=== PATIENT | female | born 1960 | race African-American/Black ===

== ENCOUNTER 2017-03-10 21:00 | Emergency (ER) | payer SELFPAY ==
[~2017-03-10] VITALS: Ht 160 cm; Wt 76.4 kg
[~2017-03-10 21:00] MED LIST: ATEN25TA PO; DEXT15SY3 PO; FAMO20 PO; MULT1CAP32 PO; RALT400T PO; TRUVT PO; [UNRECOGNIZED DRUG - CODE] PO
[2017-03-10 21:15] VITALS: BP 148/88
[2017-03-10] MEDS ORDERED: DiphenhydrAMINE HCL 25 MG CAPSULE PO ONE (21:30)
[2017-03-10] MEDS ORDERED: DEXAMETHASONE 4 MG TABLET PO ONE (21:30)
== END 2017-03-10 22:21 | disposition home or self-care (01) ==
LOC: EMS 21:01
DX: L50.9 Urticaria, unspecified (principal); I10 Essential (primary) hypertension; R07.89 Other chest pain; Z21 Asymptomatic human immunodeficiency virus [HIV] infection status
CPT/HCPCS: 99283; J8540

== ENCOUNTER 2018-09-06 09:21 | Emergency (ER) | payer BC ==
[~2018-09-06] VITALS: Ht 160 cm; Wt 77.3 kg
[~2018-09-06 09:21] MED LIST changes: -DEXT15SY3 PO
[2018-09-06] MEDS ORDERED: HIV MEDS PO (09:29)
[2018-09-06] MEDS ORDERED: KETOROLAC TROMETHAMINE 30 MG/ML VIAL IVP ONE (09:45)
[2018-09-06] MEDS ORDERED: ONDANSETRON HCL 4 MG/2 ML VIAL IVP ONE (09:45)
[2018-09-06 10:25] LABS: APPEARANCE,URINE CLEAR (CLEAR); BILIRUBIN,URINE NEGATIVE (NEGATIVE); GLUCOSE, URINE (UA) NEGATIVE (NEGATIVE); KETONES,URINE NEGATIVE (NEGATIVE); LEUKOCYTE ESTERASE ,URINE NEGATIVE (NEGATIVE); NITRATE,URINE NEGATIVE (NEGATIVE); OCCULT BLOOD,URINE NEGATIVE (NEGATIVE); PROTEIN,URINE NEGATIVE (NEGATIVE); UROBILINOGEN,URINE 0.2 mg/dL (<=1.0)
[2018-09-06 10:28] LABS: BASOPHILS % (AUTO) 0.7 % (0.0-2.0); EOSINOPHILS % (AUTO) 1.2 % (1.0-6.0); HEMATOCRIT 42.5 % (36-46); HEMOGLOBIN 13.8 g/dL (12.0-16.0); LYMPHOCYTES # (AUTO) 1.8 K/uL (1.0-4.8); MEAN CORPUSCULAR HEMOGLOBIN 30.2 pg (26.0-34.0); MEAN CORPUSCULAR HGB CONC 32.5 G/dL (31.0-37.0); MEAN CORPUSCULAR VOLUME 93 fL (80-100); MONOCYTES # (AUTO) 0.5 K/uL (0.1-1.0); NEUTROPHILS # (AUTO) 3.9 K/uL (1.8-7.7); NEUTROPHILS % (AUTO) 62.1 % (40.0-70.0); PLATELET COUNT (AUTO) 320 K/uL (150-450); RED BLOOD CELL COUNT(AUTO) 4.57 MIL/uL (4.00-5.20); RED CELL DISTRIBUTION WIDTH 13.8 % (11.5-14.5)
[2018-09-06 10:29] LABS: ANION GAP 12 mmol/L (8-16); CARBON DIOXIDE 25 mmol/L (22-29); CHLORIDE 109 mmol/L (98-107); CREATININE 0.89 mg/dL (0.60-1.30); GLUCOSE,RANDOM 129 mg/dL (70-110); SODIUM SERUM 146 mmol/L (136-145); UREA NITROGEN, BLOOD 15 mg/dL (7-18)
[2018-09-06 10:30] LABS: CALCIUM, TOTAL 9.4 mg/dL (8.8-10.5); GLOMERULAR FILTR. RATE CALC > 60 mL/min (>60)
[2018-09-06 10:35] LABS: ALANINE AMINOTRANSFERASE 31 U/L (12-78); ALBUMIN 3.8 g/dL (3.4-5.0); ALKALINE PHOSPHATASE 79 U/L (46-116); ASPARTATE AMINOTRANSFERASE 15 U/L (15-37); BILIRUBIN,TOTAL 0.3 mg/dL (0.1-1.0); LIPASE 110 U/L (73-393); TOTAL PROTEIN, SERUM 8.1 g/dL (6.4-8.2)
[2018-09-06] MEDS ORDERED: AMLO5TAB66 PO (11:42)
[2018-09-06] MEDS ORDERED: ATEN50TA PO (11:43)
[2018-09-06] MEDS ORDERED: MECLIZINE HCL 25 MG TABLET PO ONE (11:45)
[2018-09-06] MEDS ORDERED: ACETAMINOPHEN 500 MG TABLET PO ONE (11:45)
[2018-09-06 12:30] VITALS: BP 116/86
[2018-09-06] MEDS ORDERED: MECL-111 PO (12:49)
== END 2018-09-06 12:48 | disposition home or self-care (01) ==
LOC: EMS 09:23
DX: I10 Essential (primary) hypertension (principal); R42 Dizziness and giddiness; Z90.710 Acquired absence of both cervix and uterus
CPT/HCPCS: 36415; 70450; 80053; 81003; 83690; 85025; 96374; 96375; 99284; J1885; J2405

== ENCOUNTER 2022-04-17 11:47 | Emergency (ER) | payer BC, MEDICARE ==
[~2022-04-17] VITALS: Ht 160 cm; Wt 74.5 kg
[~2022-04-17 11:47] MED LIST changes: +AMLO5TAB66 PO; +ATEN-72 PO; -ATEN25TA PO; +HIV MEDS PO; +MECL-160 PO; -RALT400T PO; -TRUVT PO
[2022-04-17 12:09] VITALS: BP 127/69
[2022-04-17 13:43] LABS: COVID AG,FIA SOURCE NASOPHARYNGEAL
[2022-04-17] MEDS ORDERED: ALBUTEROL SULFATE HFA 90 MCG/PUFF 8 GM INHALER IH ONE (13:45)
[2022-04-17 14:37] LABS: INFLUENZA TYPE A NEGATIVE FOR TYPE A (NEGATIVE); INFLUENZA TYPE B NEGATIVE FOR TYPE B (NEGATIVE)
[2022-04-17] MEDS ORDERED: DOXY-354 PO (15:19)
[2022-04-17] MEDS ORDERED: NIZO2SH TP (15:24)
[2022-04-17] MEDS ORDERED: OMEP40CA21 PO (15:24)
[2022-04-17] MEDS ORDERED: ATOR20TA65 PO (15:24)
[2022-04-17] MEDS ORDERED: DOLU50TA PO (15:24)
[2022-04-17] MEDS ORDERED: EMTR1TAB13 PO (15:24)
[2022-04-17] MEDS ORDERED: OXYMETAZOLINE HCL 0.05% 15 ML NASAL SPRAY NASAL ONE (15:30)
== END 2022-04-17 15:49 | disposition home or self-care (01) ==
LOC: EMS 11:47
DX: J18.9 Pneumonia, unspecified organism (principal); I10 Essential (primary) hypertension; Z20.822 Contact with and (suspected) exposure to COVID-19
CPT/HCPCS: 71046; 87804; 94640; 99284; J3535

== ENCOUNTER 2023-06-10 15:23 | Emergency (ER) | payer BC, OTHER ==
[~2023-06-10] VITALS: Ht 160 cm; Wt 72.7 kg
[~2023-06-10 15:23] MED LIST changes: +ATOR20TA65 PO; +DOLU50TA PO; +DOXY-354 PO; +EMTR1TAB13 PO; -FAMO20 PO; -HIV MEDS PO; +KETO120S13 TP; -MECL-160 PO; +MECL-302 PO; -MULT1CAP32 PO; +OMEP40CA21 PO; -[UNRECOGNIZED DRUG - CODE] PO
[2023-06-10 16:01] LABS: COVID AG,FIA SOURCE NASAL SWAB
[2023-06-10 16:24] LABS: SARS-COV2 (COVID) ANTIGEN,FIA Negative (Negative)
[2023-06-10 16:26] LABS: INFLUENZA TYPE A NEGATIVE FOR TYPE A (NEGATIVE); INFLUENZA TYPE B NEGATIVE FOR TYPE B (NEGATIVE)
[2023-06-10 18:22] VITALS: TEMP 97.7
[2023-06-10] MEDS ORDERED: BENZ-227 PO (18:23)
[2023-06-10 18:44] VITALS: BP 138/75; PULSE 94; RESP 16
== END 2023-06-10 18:46 | disposition home or self-care (01) ==
LOC: EMS 15:24
DX: J06.9 Acute upper respiratory infection, unspecified (principal); I10 Essential (primary) hypertension; Z20.822 Contact with and (suspected) exposure to COVID-19
CPT/HCPCS: 71046; 87804; 93005; 99285